=== PATIENT | female | born 1995 | race African-American/Black ===

== ENCOUNTER 2017-07-25 20:04 | Emergency (ER) | payer SELFPAY ==
[~2017-07-25] VITALS: Ht 162.6 cm; Wt 85.0 kg
[~2017-07-25 20:04] MED LIST: METO25CR PO; SPRI28TA PO
[2017-07-25 20:06] VITALS: BP 120/64; PULSE 86; RESP 15; TEMP 98.6; O2SAT 100
[2017-07-25] MEDS ORDERED: METO25TA6 PO (20:35)
[2017-07-25] MEDS ORDERED: SODIUM CHLORIDE 0.9% FLUSH 10 ML FLUSH IV FLUSH PRN (22:30)
--- NOTE | 2017-07-25 22:39 | PD ---
HPI Chief Complaint: Abdominal Pain Time Seen by Provider: 22:36 Travel History International Travel<30 days: No Contact w/Intl Traveler<30days: No Traveled to known affect area: No History of Present Illness HPI 22-year-old female patient presents to the ER today because of one week history of intermittent crampy abdominal pain that can be up to a 7 out of 10. She denies any nausea, vomiting, urinary symptoms, vaginal discharge, or any other issues. She states that she had a normal menses this month. She states that she is not having pain currently. She does not know any exacerbating or alleviating factors. Modifying Factors: None Associated Signs & Symptoms: Crampy abdominal pains Risk Factors: None PFSH Past Medical History Autoimmune Disease: No Heart Rhythm Problems: Yes (PT STATES SHE TAKES METOPROLOL DUE TO SVT ) Cardiovascular Problems: Yes (SVT) Gastrointestinal Disorders: No Genitourinary: No Musculoskeletal: No Neurologic: No Psychiatric: No Respiratory: Yes (BRONCHITIS) Tetanus Vaccination: < 5 Years Influenza Vaccination: No ?: Unknown LMP: 07/01/2017 Menopausal: No : 1 Para: 0 Miscarriage: 0 : 1 Past Surgical History Surgical History: No Previous Surgery Other Surgery: No Social History Alcohol Use: Yes (socially) Tobacco Use: No Substance Use: No Allergies-Medications (Allergen,Severity, Reaction): Coded Allergies: No Known Allergies (Unverified , 05/12/16) Reported Meds & Prescriptions Reported Meds & Active Scripts Active Reported Metoprolol Succinate ER 24 HR (Metoprolol Succinate) 25 Mg Tab 25 Mg PO DAILY Review of Systems Except as stated in HPI: all other systems reviewed are Neg Physical Exam Narrative GENERAL: Well-developed young -[place] female patient currently in no acute distress. SKIN: Focused skin assessment warm/dry. HEAD: Atraumatic. Normocephalic. EYES: Pupils equal and round. No scleral icterus. No injection or drainage. ENT: No nasal bleeding or discharge. Mucous membranes pink and moist. NECK: Trachea midline. No JVD. CARDIOVASCULAR: Regular rate and rhythm. No murmur appreciated. RESPIRATORY: No accessory muscle use. Clear to auscultation. Breath sounds equal bilaterally. GASTROINTESTINAL: Abdomen soft, non-tender, nondistended. Hepatic and splenic margins not palpable. Benign. MUSCULOSKELETAL: No obvious deformities. No clubbing. No cyanosis. No edema. NEUROLOGICAL: Awake and alert. No obvious cranial nerve deficits. Motor grossly within normal limits. Normal speech. PSYCHIATRIC: Appropriate mood and affect; insight and judgment normal. Data Data Last Documented VS Vital Signs Date Time Temp Pulse Resp B/P (MAP) Pulse Ox O2 Delivery O2 Flow Rate FiO2 07/26/17 04:20 07/25/17 22:47 99 07/25/17 20:06 98.6 86 15 Room Air Orders Orders Beta Hcg (Quant/Titer) (07/25/17 22:30) Complete Blood Count With Diff (07/25/17 22:30) Comprehensive Metabolic Panel (07/25/17 22:30) Urinalysis - C+S If Indicated (07/25/17 22:30) Iv Access Insert/Monitor (07/25/17 22:30) Ecg Monitoring (07/25/17 22:30) Oximetry (07/25/17 22:30) Sodium Chloride 0.9% Flush (Ns Flush) (07/25/17 22:30) Complete Rh (07/25/17 22:30) Sodium Chlor 0.9% 1000 Ml Inj (Ns 1000 M (07/25/17 22:45) Us Pelvis (Ques Pr/Ect)W Trans (07/26/17 00:13) Labs Laboratory Tests Test 07/25/17 22:41 White Blood Count 11.8 TH/MM3 Red Blood Count 4.33 MIL/MM3 Hemoglobin 11.5 GM/DL Hematocrit 36.3 % Mean Corpuscular Volume 83.7 FL Mean Corpuscular Hemoglobin 26.4 PG Mean Corpuscular Hemoglobin Concent 31.6 % Red Cell Distribution Width 14.2 % Platelet Count 280 TH/MM3 Mean Platelet Volume 8.7 FL Neutrophils (%) (Auto) 68.6 % Lymphocytes (%) (Auto) 22.0 % Monocytes (%) (Auto) 6.9 % Eosinophils (%) (Auto) 2.0 % Basophils (%) (Auto) 0.5 % Neutrophils # (Auto) 8.1 TH/MM3 Lymphocytes # (Auto) 2.6 TH/MM3 Monocytes # (Auto) 0.8 TH/MM3 Eosinophils # (Auto) 0.2 TH/MM3 Basophils # (Auto) 0.1 TH/MM3 CBC Comment DIFF FINAL Differential Comment Urine Color YELLOW Urine Turbidity HAZY Urine pH 5.5 Urine Specific [place] 1.031 Urine Protein TRACE mg/dL Urine Glucose (UA) NEG mg/dL Urine Ketones 80 mg/dL Urine Occult Blood NEG Urine Nitrite NEG Urine Bilirubin NEG Urine Urobilinogen LESS THAN 2.0 MG/DL Urine Leukocyte Esterase NEG Urine RBC 1 /hpf Urine WBC 2 /hpf Urine Squamous Epithelial Cells 2 /hpf Urine Mucus FEW /lpf Microscopic Urinalysis Comment CULT NOT INDICATED Blood Urea Nitrogen 7 MG/DL Creatinine 0.62 MG/DL Random Glucose 80 MG/DL Total Protein 8.4 GM/DL Albumin 4.1 GM/DL Calcium Level 8.9 MG/DL Alkaline Phosphatase 44 U/L Aspartate Amino Transf (AST/SGOT) 11 U/L Alanine Aminotransferase (ALT/SGPT) 16 U/L Total Bilirubin 0.3 MG/DL Sodium Level 133 MEQ/L Potassium Level 3.6 MEQ/L Chloride Level 100 MEQ/L Carbon Dioxide Level 25.7 MEQ/L Anion Gap 7 MEQ/L Estimat Glomerular Filtration Rate 147 ML/MIN Human Chorionic Gonadotropin, Quant 31642 MIU/ML [facility] Medical Decision Making Medical Screen Exam Complete: Yes Emergency Medical Condition: Yes Medical Record Reviewed: Yes Interpretation(s) Last 24 hours Impressions Pelvis Ultrasound 07/26/17 0013 Signed Impressions: Service Date/Time: Wednesday, July 26, 2017 02:13 - CONCLUSION: Positive intrauterine gestational sac with what appears to be a prominent septation. [place]-rump length identified within the uterus however the heart rate is quite diminished at only 83 beats per minute. Nonvisualization of the left ovary Liu Payne MD Laboratory Tests Test 07/25/17 22:41 White Blood Count 11.8 TH/MM3 (4.0-11.0) Hemoglobin 11.5 GM/DL (11.6-15.3) Mean Corpuscular Hemoglobin 26.4 PG (27.0-34.0) Mean Corpuscular Hemoglobin Concent 31.6 % (32.0-36.0) Neutrophils # (Auto) 8.1 TH/MM3 (1.8-7.7) Urine Turbidity HAZY (CLEAR) Urine Ketones 80 mg/dL (NEG) Urine Mucus FEW /lpf (OCC) Total Protein 8.4 GM/DL (6.4-8.2) Alkaline Phosphatase 44 U/L (45-117) Aspartate Amino Transf (AST/SGOT) 11 U/L (15-37) Sodium Level 133 MEQ/L (136-145) Human Chorionic Gonadotropin, Quant [id number] MIU/ML (0-5) Differential Diagnosis Crampy abdominal pains: UTI versus gastroenteritis versus versus threatened AB versus ectopic Narrative Course Lab work shows that she is and ultrasound reveals IUP although heart rate on the IUP is fairly slow. At this point, my plan would be to release her with follow-up to [facility]. Return for any worsening in pain or new symptoms as needed. The plan has been discussed with her and she states understanding. Diagnosis Primary Impression: Abdominal pain in Additional Instructions: Follow-up with [facility] in 2 days. Return for any worsening in pain, bleeding, and as needed. Disposition: 01 DISCHARGE HOME Condition: Stable Kathy Madera MD Jul 25, 2017 22:39
[2017-07-25] MEDS ORDERED: SODIUM CHLOR 0.9% 1000 ML INJ 1,000 ML IV ONE (22:45)
[2017-07-25 22:47] VITALS: O2SAT 99
[2017-07-25 23:08] LABS: AUTOMATED NEUTROPHIL # 8.1 TH/MM3 (1.8-7.7); BASOPHIL # 0.1 TH/MM3 (0-0.2); BASOPHIL % 0.5 % (0.0-2.0); EOSINOPHIL # 0.2 TH/MM3 (0-0.4); HEMATOCRIT 36.3 % (35.0-46.0); HEMO FLAGS DIFF FINAL; LYMPHOCYTE # 2.6 TH/MM3 (1.0-4.8); MEAN CELL VOLUME 83.7 FL (80.0-100.0); MEAN CORPUSCULAR HEMOGLOBIN 26.4 PG (27.0-34.0); MEAN CORPUSCULAR HGB CONC 31.6 % (32.0-36.0); MONO % 6.9 % (0.0-8.0); NEUT % 68.6 % (16.0-70.0); PLATELET COUNT 280 TH/MM3 (150-450); RED BLOOD COUNT 4.33 MIL/MM3 (4.00-5.30); RED CELL DISTRIBUTION WIDTH 14.2 % (11.6-17.2); WHITE BLOOD COUNT 11.8 TH/MM3 (4.0-11.0)
[2017-07-25 23:20] LABS: AST (GOT) 11 U/L (15-37); BLOOD UREA NITROGEN 7 MG/DL (7-18); CHLORIDE 100 MEQ/L (98-107); GLOMERULAR FILTRATION RATE 147 ML/MIN (>89); POTASSIUM 3.6 MEQ/L (3.5-5.1); SODIUM (NA) 133 MEQ/L (136-145)
[2017-07-25 23:21] LABS: ANION GAP 7 MEQ/L (5-15); BICARBONATE 25.7 MEQ/L (21.0-32.0)
[2017-07-25 23:26] LABS: BLOOD, URINE NEG (NEG); COMMENT (UR) CULT NOT INDICATED; CULTURE IF INDICATED CULT NOT INDICATED; GLUCOSE,URINE NEG (NEG); KETONE, URINE 80 mg/dL (NEG); MUCUS URINE FEW /lpf (OCC); NITRITE,URINE NEG (NEG); PH, URINE 5.5 (5.0-8.5); SQUAMOUS EPITHELIAL CELL URINE 2 /hpf (0-5); URINE COLOR YELLOW (YELLW/STRAW)
[2017-07-25 23:39] LABS: ALKALINE PHOSPHATASE 44 U/L (45-117); ALT (GPT) 16 U/L (10-53); BETA HCG QUANT 52836 MIU/ML (0-5); TOTAL BILIRUBIN ADULT 0.3 MG/DL (0.2-1.0)
--- NOTE | 2017-07-26 03:48 | RADRPT ---
EXAM DATE/TIME: 07/26/2017 02:13 [place] COMPARISON: No previous studies available for comparison. INDICATIONS : Bleeding. LAB(S): Beta-hC MEDICAL HISTORY : . Irregular heart rate. Bronchitis. SURGICAL HISTORY : . ENCOUNTER: Initial ACUITY: 3 days PAIN SCORE: 0/10 LOCATION: Bilateral pelvis MEASUREMENTS: LEFT OVARY: 2.2 x 2.2 x 1.4 cm UTERUS: 9.3 x 6.6 x 5.3 cm ENDOMETRIAL STRIPE: 20 mm RIGHT OVARY: 3.4 x 1.5 x 1.1 cm FREE FLUID: Yes posterior cul de sac. CROWN RUMP LENGTH: 1.7 cm = 8 WKS 0 DAYS FHR: 83 BPM FINDINGS: UTERUS: The myometrium has homogeneous echotexture without mass.There is a intrauterine gestational sac which almost appears to have a septation. There is a crown rump length of 1.7 cm. Positive heart tones co uld not be clearly identified only at 83 beats per minute. RIGHT OVARY: Ovary contains no mass or significant cystic lesion. LEFT OVARY: Poorly visualized MISCELLANEOUS: Minimal free fluid. CONCLUSION: Positive intrauterine gestational sac with what appears to be a prominent septation. [place]-rump lengt h identified within the uterus however the heart rate is quite diminished at only 83 beats per minute . Nonvisualization of the left ovary Liu Payne MD on July 26, 2017 at 3:45 Board Certified Radiologist. This report was verified electronically.
== END 2017-07-26 04:20 | disposition home or self-care (01) ==
LOC: NEPE 20:04
DX: O26.891 Other specified pregnancy related conditions, first trimester (principal); R10.9 Unspecified abdominal pain; I47.1 Supraventricular tachycardia; Z79.899 Other long term (current) drug therapy; Z34.91 Encounter for supervision of normal pregnancy, unspecified, first trimester
CPT/HCPCS: 76700; 76817; 80053; 81001; 84702; 85025; 86901; 99284

== ENCOUNTER 2017-12-10 15:27 | Emergency (ER) | payer MEDICAID ==
[~2017-12-10] VITALS: Ht 162.6 cm; Wt 98.5 kg
[~2017-12-10 15:27] MED LIST changes: +METO1TAB42 PO; -METO25CR PO; -SPRI28TA PO
[2017-12-10 15:28] VITALS: BP 144/75; PULSE 98; RESP 20; TEMP 98.4; O2SAT 100
[2017-12-10 16:46] LABS: BACTERIA, URINE OCC /hpf; BILIRUBIN, URINE NEG (NEG); BLOOD, URINE NEG (NEG); GLUCOSE,URINE NEG (NEG); KETONE, URINE NEG (NEG); NITRITE,URINE NEG (NEG); SQUAMOUS EPITHELIAL CELL URINE 9 /hpf (0-5); URINE COLOR LIGHT-YELLOW (YELLW/STRAW); URINE LEUKOCYTE ESTERASE NEG (NEG)
[2017-12-10 17:09] LABS: ALBUMIN 3.1 GM/DL (3.4-5.0); AST (GOT) 12 U/L (15-37); BICARBONATE 22.5 MEQ/L (21.0-32.0); BLOOD UREA NITROGEN 4 MG/DL (7-18); CALCIUM 8.5 MG/DL (8.5-10.1); CHLORIDE 108 MEQ/L (98-107); CREATININE 0.51 MG/DL (0.50-1.00); GLOMERULAR FILTRATION RATE 184 ML/MIN (>89); GLUCOSE,RANDOM 83 MG/DL (74-106); SODIUM (NA) 140 MEQ/L (136-145)
[2017-12-10 17:17] LABS: ALKALINE PHOSPHATASE 75 U/L (45-117); ALT (GPT) 10 U/L (10-53); TOTAL BILIRUBIN ADULT 0.2 MG/DL (0.2-1.0); TOTAL PROTEIN 7.7 GM/DL (6.4-8.2)
[2017-12-10 18:06] LABS: AUTOMATED NEUTROPHIL # 8.8 TH/MM3 (1.8-7.7); BASOPHIL % 0.1 % (0.0-2.0); EOSINOPHIL # 0.2 TH/MM3 (0-0.4); EOSINOPHIL % 1.7 % (0.0-4.0); HEMATOCRIT 31.8 % (35.0-46.0); HEMOGLOBIN 10.4 GM/DL (11.6-15.3); LYMPH % 17.8 % (9.0-44.0); LYMPHOCYTE # 2.2 TH/MM3 (1.0-4.8); MEAN CELL VOLUME 84.3 FL (80.0-100.0); MEAN CORPUSCULAR HEMOGLOBIN 27.6 PG (27.0-34.0); MEAN CORPUSCULAR HGB CONC 32.8 % (32.0-36.0); MONO % 7.7 % (0.0-8.0); MONOCYTE # 0.9 TH/MM3 (0-0.9); NEUT % 72.7 % (16.0-70.0); PLATELET COUNT 215 TH/MM3 (150-450); RED BLOOD COUNT 3.77 MIL/MM3 (4.00-5.30); RED CELL DISTRIBUTION WIDTH 14.1 % (11.6-17.2); WHITE BLOOD COUNT 12.1 TH/MM3 (4.0-11.0)
--- NOTE | 2017-12-10 19:15 | PD ---
HPI Chief Complaint: Medical Clearance Time Seen by Provider: 19:03 Travel History International Travel<30 days: No Contact w/Intl Traveler<30days: No Traveled to known affect area: No History of Present Illness HPI 22-year-old black female 2 para 0 AB 1 with a 6 month followed by [facility] out of [facility]. Patient states that today she's felt rundown, weak and dizzy. She had an episode of vomiting this morning which she states is very normal for her. She states that she typically vomits in the morning with her . Patient went home from work early today because she was feeling rundown. She states that she only got 5 hours of sleep last night and has not been sleeping well. Patient states that she feels that she's having some insomnia. She denies any fever or chills. No earache or sore throat. No cough or shortness of breath. No abdominal pain. No vaginal discharge or bleeding. No urinary symptoms. PFSH Past Medical History Autoimmune Disease: No Heart Rhythm Problems: Yes (PT STATES SHE TAKES METOPROLOL DUE TO SVT ) Cardiovascular Problems: Yes (SVT) Gastrointestinal Disorders: No Genitourinary: No Musculoskeletal: No Neurologic: No Psychiatric: No Respiratory: Yes (BRONCHITIS) Tetanus Vaccination: < 5 Years Influenza Vaccination: No ?: Menopausal: No : 1 Para: 0 Miscarriage: 0 : 1 Past Surgical History Surgical History: No Previous Surgery Other Surgery: No Social History Alcohol Use: No Tobacco Use: No Substance Use: No Allergies-Medications (Allergen,Severity, Reaction): Coded Allergies: No Known Allergies (Unverified Adverse Reaction, Unknown, 12/10/17) Reported Meds & Prescriptions Reported Meds & Active Scripts Active Reported Metoprolol Succinate ER 24 HR (Metoprolol Succinate) 25 Mg Tab 25 Mg PO DAILY Review of Systems Except as stated in HPI: all other systems reviewed are Neg Physical Exam Narrative GENERAL: Well-developed, well-nourished in no apparent distress. Nontoxic appearing. HEAD: Normocephalic, atraumatic. EYES: Pupils equal round and reactive. Extraocular motions intact. No scleral icterus. No injection or drainage. ENT: Nose clear. Throat without erythema, tonsillar hypertrophy or exudate. Uvula midline. Airway patent. NECK: Trachea midline. Supple, nontender, moves head freely. No central bony tenderness or spasm. CARDIOVASCULAR: Regular rate and rhythm without murmurs, gallops, or rubs. RESPIRATORY: Clear to auscultation. Breath sounds equal bilaterally. No wheezes , rales, or rhonchi. GASTROINTESTINAL: Abdomen soft, non-tender, gravid. No hepato-splenomegaly, No guarding. EXTREMITIES: No clubbing, cyanosis, or edema. No joint tenderness. BACK: Nontender without deformity. No flank tenderness. NEUROLOGICAL: Awake, alert and oriented x 3 .Cranial nerves grossly intact. Motor and sensory grossly within normal limits. Normal speech. Data Data Last Documented VS Vital Signs Date Time Temp Pulse Resp B/P (MAP) Pulse Ox O2 Delivery O2 Flow Rate FiO2 12/10/17 15:28 98.4 98 20 144/75 (98) 100 Room Air Orders Orders Complete Blood Count With Diff (12/10/17 15:57) Comprehensive Metabolic Panel (12/10/17 15:57) Urinalysis - C+S If Indicated (12/10/17 15:57) Electrocardiogram (12/10/17 ) Labs Laboratory Tests Test 12/10/17 16:15 White Blood Count 12.1 TH/MM3 Red Blood Count 3.77 MIL/MM3 Hemoglobin 10.4 GM/DL Hematocrit 31.8 % Mean Corpuscular Volume 84.3 FL Mean Corpuscular Hemoglobin 27.6 PG Mean Corpuscular Hemoglobin Concent 32.8 % Red Cell Distribution Width 14.1 % Platelet Count 215 TH/MM3 Mean Platelet Volume 10.0 FL Neutrophils (%) (Auto) 72.7 % Lymphocytes (%) (Auto) 17.8 % Monocytes (%) (Auto) 7.7 % Eosinophils (%) (Auto) 1.7 % Basophils (%) (Auto) 0.1 % Neutrophils # (Auto) 8.8 TH/MM3 Lymphocytes # (Auto) 2.2 TH/MM3 Monocytes # (Auto) 0.9 TH/MM3 Eosinophils # (Auto) 0.2 TH/MM3 Basophils # (Auto) 0.0 TH/MM3 CBC Comment DIFF FINAL Differential Comment Urine Color LIGHT-YELLOW Urine Turbidity HAZY Urine pH 6.0 Urine Specific [place] 1.008 Urine Protein NEG mg/dL Urine Glucose (UA) NEG mg/dL Urine Ketones NEG mg/dL Urine Occult Blood NEG Urine Nitrite NEG Urine Bilirubin NEG Urine Urobilinogen LESS THAN 2.0 MG/DL Urine Leukocyte Esterase NEG Urine WBC 3 /hpf Urine Squamous Epithelial Cells 9 /hpf Urine Bacteria OCC /hpf Microscopic Urinalysis Comment CULT NOT INDICATED Blood Urea Nitrogen 4 MG/DL Creatinine 0.51 MG/DL Random Glucose 83 MG/DL Total Protein 7.7 GM/DL Albumin 3.1 GM/DL Calcium Level 8.5 MG/DL Alkaline Phosphatase 75 U/L Aspartate Amino Transf (AST/SGOT) 12 U/L Alanine Aminotransferase (ALT/SGPT) 10 U/L Total Bilirubin 0.2 MG/DL Sodium Level 140 MEQ/L Potassium Level 3.4 MEQ/L Chloride Level 108 MEQ/L Carbon Dioxide Level 22.5 MEQ/L Anion Gap 10 MEQ/L Estimat Glomerular Filtration Rate 184 ML/MIN [facility] Medical Decision Making Medical Screen Exam Complete: Yes Emergency Medical Condition: Yes Medical Record Reviewed: Yes Interpretation(s) Laboratory Tests Test 12/10/17 16:15 White Blood Count 12.1 TH/MM3 Red Blood Count 3.77 MIL/MM3 Hemoglobin 10.4 GM/DL Hematocrit 31.8 % Mean Corpuscular Volume 84.3 FL Mean Corpuscular Hemoglobin 27.6 PG Mean Corpuscular Hemoglobin Concent 32.8 % Red Cell Distribution Width 14.1 % Platelet Count 215 TH/MM3 Mean Platelet Volume 10.0 FL Neutrophils (%) (Auto) 72.7 % Lymphocytes (%) (Auto) 17.8 % Monocytes (%) (Auto) 7.7 % Eosinophils (%) (Auto) 1.7 % Basophils (%) (Auto) 0.1 % Neutrophils # (Auto) 8.8 TH/MM3 Lymphocytes # (Auto) 2.2 TH/MM3 Monocytes # (Auto) 0.9 TH/MM3 Eosinophils # (Auto) 0.2 TH/MM3 Basophils # (Auto) 0.0 TH/MM3 CBC Comment DIFF FINAL Differential Comment Urine Color LIGHT-YELLOW Urine Turbidity HAZY Urine pH 6.0 Urine Specific [place] 1.008 Urine Protein NEG mg/dL Urine Glucose (UA) NEG mg/dL Urine Ketones NEG mg/dL Urine Occult Blood NEG Urine Nitrite NEG Urine Bilirubin NEG Urine Urobilinogen LESS THAN 2.0 MG/DL Urine Leukocyte Esterase NEG Urine WBC 3 /hpf Urine Squamous Epithelial Cells 9 /hpf Urine Bacteria OCC /hpf Microscopic Urinalysis Comment CULT NOT INDICATED Blood Urea Nitrogen 4 MG/DL Creatinine 0.51 MG/DL Random Glucose 83 MG/DL Total Protein 7.7 GM/DL Albumin 3.1 GM/DL Calcium Level 8.5 MG/DL Alkaline Phosphatase 75 U/L Aspartate Amino Transf (AST/SGOT) 12 U/L Alanine Aminotransferase (ALT/SGPT) 10 U/L Total Bilirubin 0.2 MG/DL Sodium Level 140 MEQ/L Potassium Level 3.4 MEQ/L Chloride Level 108 MEQ/L Carbon Dioxide Level 22.5 MEQ/L Anion Gap 10 MEQ/L Estimat Glomerular Filtration Rate 184 ML/MIN Differential Diagnosis Differential diagnoses: Hypoglycemia, electrolyte abnormality, UTI, depression, insomnia Narrative Course IV access has been obtained. Patient has had CBC, chemistry and UA. Patient laboratory tests are unremarkable. She appears well-hydrated. The patient states that she is actually feeling much better. She has no nausea now. She states that she feels that she just needs to get some rest at night. She is requesting something to help her sleep. She denies any abdominal pain, vaginal bleeding or discharging. Positive normal movement. No suicidal or homicidal ideation. The patient is taking by mouth without difficulty. She looks well. This is sleep deprivation, Diagnosis Primary Impression: Sleep deprivation Additional Impression: Patient Instructions: General Instructions Additional Instructions: Rest. Increase fluids. May take Benadryl for nausea and for sleep. Follow-up with your OB doctor in the next 24 hours. Return to the ER for any emergencies. Med/Other Pt SpecificInfo: No Meds Exist/No RX given Disposition: 01 DISCHARGE HOME Condition: Stable Rasta Valero Dec 10, 2017 19:15
--- NOTE | 2017-12-11 21:00 | EKG ---
Date Performed: 12/10/2017 Time Performed: 17:46:26 PTAGE: 22 years EKG: SINUS TACHYCARDIA ABNORMAL RHYTHM ECG PREVIOUS TRACING : 04/18/2013 06.20 SINCE PRIOR TRACING NO SIGNIFICANT CHANGE NOTED DOCTOR: Kassidy Pearce Interpretating Date/Time 12/11/2017 20:58:25
== END 2017-12-10 19:49 | disposition home or self-care (01) ==
LOC: NEPD 15:27
DX: Z72.820 Sleep deprivation (principal); O21.9 Vomiting of pregnancy, unspecified; I47.1 Supraventricular tachycardia; R94.31 Abnormal electrocardiogram [ECG] [EKG]
CPT/HCPCS: 80053; 81001; 85025; 93005; 99284